=== PATIENT | female | born 1955 | race Caucasian/White ===

== ENCOUNTER 2016-08-30 11:27 | Day surgery (SDC) | payer OTHER ==
[~2016-08-30] VITALS: Ht 160 cm; Wt 94.9 kg
[2016-08-30 11:25] VITALS: BP 112/71; PULSE 54; RESP 18
[2016-08-30] MEDS ORDERED: MIDAZOLAM 1 MG/ML 2 ML INJ ONE ×2 (12:39→12:40)
[2016-08-30] MEDS ORDERED: PROPOFOL 20 ML ONE (12:39)
[2016-08-30] MEDS ORDERED: FENTAnyl 50 MCG/ML VIAL ONE (12:40)
[2016-08-30 12:45] VITALS: BP 156/111; PULSE 70; RESP 21
[2016-08-30 12:49] VITALS: Ht 160 cm; Wt 94.9 kg
[2016-08-30 12:58] VITALS: BP 141/108; PULSE 79; RESP 9
[2016-08-30 13:25] VITALS: BP 106/60; PULSE 70; RESP 19
--- NOTE | 2016-08-30 18:13 | GILP ---
DATE OF PROCEDURE: 08/30/2016 NAME OF PROCEDURES: Esophagogastroduodenoscopy and biopsy. SURGEON: Angelina Davis MD PREOPERATIVE DIAGNOSES: 1. Abdominal pain. 2. Chronic heartburn. POSTOPERATIVE DIAGNOSES: 1. Hiatal hernia. 2. Gastroesophageal reflux disease. 3. Gastritis with erosions. 4. Gastric mucosal biopsies were taken for Helicobacter pylori test. INDICATION FOR THE PROCEDURE: Ms. Marta Bustillos is a 61-year-old female patient who had upp er abdominal pain and chronic heartburn, not responding to therapy. The patient was scheduled for e ndoscopic examination for further evaluation. The procedure and possible complications are well explained to the patient. The patient understood and consented to the procedure. DESCRIPTION OF PROCEDURE: Under the influence of anesthesia, the gastroscope was carefully introduc ed into the esophagus and under direct vision, it was advanced to the stomach and through the pyloru s into the duodenal bulb and descending duodenum. FINDINGS: ESOPHAGUS: The patient had hiatal hernia and gastroesophageal reflux disease. STOMACH: She had gastritis. Gastric mucosal biopsies were taken for H. pylori test. DUODENUM: Normal. She tolerated the procedure very well and there were no complications from the procedure. At the en d of the procedure, she was awake with stable vital signs and she was discharged home to the care of her family. IMPRESSION: Please see postoperative diagnoses. PLAN: 1. Omeprazole 40 mg p.o. q.a.m. 2. Zantac 300 mg p.o. at bedtime. 3. Await H. pylori test report. Dictated By: ANGELINA URIAS/JEIMY Conf#: [id number] DID#: [id number]
== END 2016-08-30 14:24 | disposition home or self-care (01) ==
LOC: GIL 11:27
PROVIDERS: ATTEND Internal Medicine Gastroenterology
DX: K44.9 Diaphragmatic hernia without obstruction or gangrene (principal); K21.9 Gastro-esophageal reflux disease without esophagitis; K29.60 Other gastritis without bleeding; E66.9 Obesity, unspecified; Z68.37 Body mass index [BMI] 37.0-37.9, adult
CPT/HCPCS: 43239; 87081; J2250; J3010; Z7610

== ENCOUNTER 2018-11-12 06:12 | Day surgery (SDC) | payer OTHER ==
[~2018-11-12] VITALS: Ht 152.4 cm; Wt 94.2 kg
[2018-11-12 06:54] VITALS: Ht 152.4 cm; Wt 94.2 kg
[2018-11-12] MEDS ORDERED: RANI150T5 PO (07:02)
[2018-11-12] MEDS ORDERED: [UNRECOGNIZED DRUG - OTHER] (07:02)
[2018-11-12] MEDS ORDERED: LEVO75TA5 PO (07:02)
[2018-11-12] MEDS ORDERED: INHALER PRN (07:02)
[2018-11-12] MEDS ORDERED: PROPOFOL 20 ML ONE (07:31)
--- NOTE | 2018-11-12 07:31 | PREAC ---
Date/Time of Note Date/Time of Note DATE: 11/12/18 TIME: 07:29 Anesthesia Eval and Record Evaluation Time Pre-Procedure Interview DATE: 11/12/18 TIME: 07:29 Age 63 Sex female NPO: 8 hrs Preoperative diagnosis GERD, Abdominal Pain Planned procedure EGD Past Medical History Past Medical History: Includes Endo: Hyperthyroid Pulm: Asthma, Other (Bronchitis) GI: GERD, Obesity Heme: Anemia Surgery & Anesthesia Issues No known issue Meds Anticoagulation: No Beta Kaiden within 24 hr: No Reason Beta Kaiden not given: Pt. not on B-Kaiden Reported Medications [Inhaler Prn] No Conflict Check 11/12/18 [Dulcolax Prn] No Conflict Check 11/12/18 Ranitidine Hcl* (Ranitidine Hcl*) 150 Mg Tablet, 150 MG PO HS, #30 TAB 11/12/18 Levothyroxine Sodium* (Levothyroxine Sodium*) 75 Mcg Tablet, 75 MCG PO BEFORE BREAKFAST, #30 TAB 11/12/18 Meds reviewed: Yes Allergies Coded Allergies: No Known Drug Allergies (Verified Allergy, Unknown, 11/12/18) Allergies Reviewed: Yes Labs/Studies Labs Reviewed: Reviewed by anesthesiologist test: N/A Studies: ECG (n/a), CXR (n/a) Pre-procedure Exam Airway: Adequate mouth opening, Adequate thyromental dist Mallampati: Mallampati II Teeth: Normal Lung: Normal Heart: Normal ASA Physical Status ASA physical status: 3 Emergency: None Planned Anesthetic General/MAC: MAC Planned Pain Management Parenteral pain med Pre-operative Attestations Prior to commencing anesthesia and surgery, the patient was re-evaluated, there was verification of: *The patient's identity *The results of appropriate recent lab work and preoperative vital signs *The above evaluation not changing prior to induction *Anesthetic plan, risk benefits, alternative and complications discussed with patient/family; questions answered; patient/family understands, accepts and wishes to proceed. GABRIELLA SANCHEZ MD Nov 12, 2018 07:31
[2018-11-12 07:32] VITALS: BP 141/65; PULSE 61; RESP 23
--- NOTE | 2018-11-12 08:06 | PAC ---
Date/Time of Note Date/Time of Note DATE: 11/12/18 TIME: 08:06 Post-Anesthesia Notes Post-Anesthesia Note Last documented vital signs T: 98.0 Activity: WNL Respiratory function: WNL Cardiovascular function: WNL Mental status: Baseline Pain reasonably controlled: Yes Hydration appropriate: Yes Nausea/Vomiting absent: Yes GABRIELLA SANCHEZ MD Nov 12, 2018 08:06
[2018-11-12 08:40] VITALS: BP 136/62
== END 2018-11-12 10:17 | disposition home or self-care (01) ==
LOC: GIL 06:12
PROVIDERS: ATTEND Internal Medicine Gastroenterology
DX: K20.8 Other esophagitis (principal); K29.50 Unspecified chronic gastritis without bleeding
CPT/HCPCS: 43239; 88305; 88312; 88313; Z7610